=== PATIENT | female | born 1985 | race Caucasian/White ===

== ENCOUNTER 2018-02-15 23:25 | Emergency (ER) | payer OTHER ==
[~2018-02-15] VITALS: Ht 154.9 cm; Wt 90.7 kg
[2018-02-15 23:29] VITALS: Ht 154.9 cm; Wt 90.7 kg
[2018-02-16 01:38] VITALS: BP 128/71
== END 2018-02-16 01:53 | disposition home or self-care (01) ==
LOC: ED 23:25
DX: T78.2XXA Anaphylactic shock, unspecified, initial encounter (principal); R07.89 Other chest pain; Z88.8 Allergy status to other drugs, medicaments and biological substances; Z91.013 Allergy to seafood
CPT/HCPCS: J0171; J1200; J2930; J3490; J7030